=== PATIENT | female | born 1940 | race Caucasian/White ===

== ENCOUNTER 2022-04-21 13:53 | Inpatient (IN) | payer MEDICARE ==
[~2022-04-21] VITALS: Ht 165.1 cm; Wt 64.4 kg
[2022-04-21 13:53] VITALS: BP_SYST 128
[2022-04-21] MEDS ORDERED: ASPIRIN 81 MG TAB.CHEW PO ONE (14:30)
--- NOTE | 2022-04-21 14:41 | NUR ---
PATIENT BIBA FROM HOME C/O DIARHEA ALL NIGHT, ON ARRIVAL PATIENT AAOX4 SPEECH CLEAR AND COHERENT, MOVE ALL EXTREMITIES, DENIES ABDOMINAL PAIN, AWAITING FOR EDP FOR INITIAL ASSESSMENT.
[2022-04-21 14:54] LABS: BASOPHILS # (AUTO) 0.1 K/uL (0.0-0.2); BASOPHILS % (AUTO) 0.4 % (0.0-2.0); EOSINOPHILS # (AUTO) 0.9 K/uL (0.0-0.4); EOSINOPHILS % (AUTO) 6.7 % (0.0-4.0); HEMATOCRIT 43.3 % (36-48); HEMOGLOBIN 14.6 g/dL (12.0-16.0); LYMPHOCYTES # (AUTO) 1.8 K/uL (1.0-5.5); LYMPHOCYTES % (AUTO) 12.8 % (20.5-51.5); MEAN CORPUSCULAR HEMOGLOBIN 32 pg (27-31); MEAN CORPUSCULAR HGB CONC 34 % (32-36); MEAN CORPUSCULAR VOLUME 94 fL (79.0-98.0); MONOCYTES # (AUTO) 0.7 K/uL (0.0-1.0); MONOCYTES % (AUTO) 5.2 % (1.7-9.3); NEUTROPHILS # (AUTO) 10.6 K/uL (1.8-7.7); NEUTROPHILS % (AUTO) 74.9 % (40.0-70.0); PLATELET COUNT (AUTO) 262 K/uL (130-430); RED BLOOD CELL COUNT(AUTO) 4.61 MIL/uL (4.2-6.2); RED CELL DISTRIBUTION WIDTH 13.2 % (9.0-15.0); WHITE BLOOD COUNT (AUTO) 14.1 K/uL (4.8-10.8)
[2022-04-21 15:14] LABS: ANION GAP 9 (5-15); CALCIUM 9.8 mg/dL (8.4-11.0); CHLORIDE 106 mmol/L (98-107); CREATININE 0.99 mg/dL (0.55-1.30); GLUCOSE 107 mg/dL (70-99); UREA NITROGEN, BLOOD 25 mg/dL (8-21)
[2022-04-21 15:23] LABS: ALANINE AMINOTRANSFERASE 86 U/L (12-78); ALBUMIN 3.5 g/dL (3.4-4.8); ASPARTATE AMINOTRANSFERASE 220 U/L (10-37); TOTAL BILIRUBIN 0.7 mg/dL (0.0-1.0)
--- NOTE | 2022-04-21 15:24 | NUR ---
COVID AND FLU SWABBED AND SENT TO LAB
--- NOTE | 2022-04-21 16:00 | NUR ---
EDP SEEN PATIENT WITH ORDER PORSHA OUT.
--- NOTE | 2022-04-21 16:47 | NUR ---
PATIENT ASSISTED TO THE BATHROOM.
[2022-04-21] MEDS ORDERED: VITD2000 PO (17:05)
[2022-04-21] MEDS ORDERED: SIMV40TA2 PO (17:05)
[2022-04-21] MEDS ORDERED: MULT-1117 PO (17:05)
[2022-04-21] MEDS ORDERED: OXYB10TA4 PO (17:05)
[2022-04-21] MEDS ORDERED: [UNRECOGNIZED DRUG - OTHER] (17:05)
[2022-04-21] MEDS ORDERED: CALCIUM (17:05)
--- NOTE | 2022-04-21 17:14 | NUR ---
PATIENT REMAINS IN BED, FAMILY MEMBER AT BEDSIDE, AWAITING FOR DISPOSITION.
--- NOTE | 2022-04-21 17:51 | NUR ---
Admit bed requested Patient will be admitted to care of . Admitted to [facility] unit. Diagnosis ACUTE PANCREATITIS Inpatient (Yes or No) Y Observation (Yes or No) N Orientation concerns or request close to nursing station (Yes or No) N Covid Status NEG On vent or bipap N Isolation requirements N Needs a sitter N From Home (Yes or if No enter name of facility) Y Requires Dialysis (Yes or No) N Med Rec Completed (Yes of No) Y
--- NOTE | 2022-04-21 17:52 | NUR ---
Medication reconciliation completed with information provided by PT PER PRIMARY RN MICHELINE. Any prior medication reconciliation on file was reviewed and corrected.
--- NOTE | 2022-04-21 17:54 | NUR ---
PATIENT ADMITTED TO M/S FOR PANCREATITIS, AWAITING FOR BED ASSIGNMENT.
[2022-04-21 17:55] LABS: LIPASE 5721 U/L (73-393)
[2022-04-21] MEDS: D5NS 1,000 ML IV SCH (18:29)
--- NOTE | 2022-04-21 19:30 | NUR ---
Patient resting quietly. No acute distress noted. Vital signs within normal range. Son at bedside
[2022-04-21] MEDS ORDERED: MAGNESIUM SULFATE 50 ML IV PRN (19:45)
[2022-04-21] MEDS ORDERED: NALOXONE HCL 0.4 MG/ML AMP (NARCAN) IVP PRN ×2 (19:45)
[2022-04-21] MEDS ORDERED: MORPHINE 2 MG/ML INJ. SYRINGE IVP PRN ×2 (19:45)
[2022-04-21] MEDS ORDERED: POTASSIUM CHLORIDE 20 MEQ TAB.PRT.SR PO PRN (19:45)
[2022-04-21] MEDS ORDERED: ACETAMINOPHEN 325 MG TABLET PO PRN (19:45)
[2022-04-21] MEDS ORDERED: MUPIROCIN 2% TOPICAL OINTMENT 22 GM NS PRN (19:45)
[2022-04-21] MEDS ORDERED: LORazepam 2 MG/ML VIAL IVP PRN (19:45)
[2022-04-21] MEDS ORDERED: DOCUSATE SODIUM 100 MG CAPSULE PO PRN (19:45)
[2022-04-21] MEDS ORDERED: ZOLPIDEM TARTRATE 5 MG TABLET PO PRN (19:45)
[2022-04-21] MEDS ORDERED: ONDANSETRON HCL 4 MG/2 ML VIAL IVP PRN (19:45)
[2022-04-21] MEDS ORDERED: OXYBUTYNIN CHLORIDE 5 MG TABLET PO SCH (21:00)
[2022-04-21] MEDS ORDERED: HEPARIN SODIUM,PORCINE 5,000 UNITS/ML VIAL SUBCUT SCH (21:00)
--- NOTE | 2022-04-21 21:00 | NUR ---
ADMITTING MEDICATION DITROPAN NOT AVAILABLE IN THE ER.
--- NOTE | 2022-04-21 21:00 | NUR ---
Escorted patient to and from restroom. Patient tolerated walking well.
--- NOTE | 2022-04-21 21:30 | NUR ---
Patient resting quietly. No acute distress noted. Vital signs within normal range.
--- NOTE | 2022-04-21 21:51 | NUR ---
Chi Mendiola [phone]
--- NOTE | 2022-04-21 22:16 | NUR ---
NOTIFIED HOUSE SUP TO BRING DITROPAN TO ER.
--- NOTE | 2022-04-21 22:30 | NUR ---
Escorted patient to and from restroom. Patient tolerated walking well.
--- NOTE | 2022-04-22 02:09 | NUR ---
PT RESING IN BED WITH EYES CLOSED, VSS, NO ACUTE DISTRESS NOTED.
--- NOTE | 2022-04-22 03:47 | NUR ---
Escorted patient to and from restroom. Patient tolerated walking well.
--- NOTE | 2022-04-22 04:50 | NUR ---
Patient resting quietly. No acute distress noted. Vital signs within normal range.
[2022-04-22 06:21] LABS: BASOPHILS % (AUTO) 0.2 % (0.0-2.0); EOSINOPHILS # (AUTO) 0.8 K/uL (0.0-0.4); HEMATOCRIT 41.6 % (36-48); HEMOGLOBIN 13.9 g/dL (12.0-16.0); LYMPHOCYTES # (AUTO) 2.1 K/uL (1.0-5.5); LYMPHOCYTES % (AUTO) 25.7 % (20.5-51.5); MEAN CORPUSCULAR HEMOGLOBIN 31 pg (27-31); MEAN CORPUSCULAR HGB CONC 34 % (32-36); MEAN CORPUSCULAR VOLUME 94 fL (79.0-98.0); MONOCYTES # (AUTO) 0.5 K/uL (0.0-1.0); MONOCYTES % (AUTO) 6.2 % (1.7-9.3); NEUTROPHILS # (AUTO) 4.7 K/uL (1.8-7.7); NEUTROPHILS % (AUTO) 57.9 % (40.0-70.0); PLATELET COUNT (AUTO) 253 K/uL (130-430); RED BLOOD CELL COUNT(AUTO) 4.43 MIL/uL (4.2-6.2); RED CELL DISTRIBUTION WIDTH 13.1 % (9.0-15.0); WHITE BLOOD COUNT (AUTO) 8.2 K/uL (4.8-10.8)
[2022-04-22 06:30] LABS: ANION GAP 7 (5-15); CALCIUM 9.2 mg/dL (8.4-11.0); CHLORIDE 109 mmol/L (98-107); CREATININE 0.93 mg/dL (0.55-1.30); GLUCOSE 81 mg/dL (70-99); LIPASE 495 U/L (73-393); UREA NITROGEN, BLOOD 18 mg/dL (8-21)
--- NOTE | 2022-04-22 07:25 | NUR ---
ASSUMED PATIENT CARE, AAOX4 SPEECH CLEAR AND COHERENT, VERBALIZES FEELING GOING HOME, DENIES PAIN, WILL CONTINUE TO MONITOR.
[2022-04-22] MEDS: D5NS 1,000 ML IV SCH (07:49)
[2022-04-22 07:59] LABS: CHOLESTEROL 108 mg/dL (<200); HDL CHOLESTEROL 53 mg/dL (>55); LDL CHOLESTEROL 51 mg/dL (<100); TRIGLYCERIDES 41 mg/dL (30-150)
--- NOTE | 2022-04-22 07:59 | NUR ---
DR PAGE AT BEDSIDE.
--- NOTE | 2022-04-22 08:45 | NUR ---
ALL RESULT BACK ADMITTING PHYSICIAN D/C PATIENT WILL CALL FAMILY FOR BUILDING AND CONSTRUCTION MANAGER.
--- NOTE | 2022-04-22 08:51 | NUR ---
CALLED CHOLO, PT SISTER AT [phone] TO TODDLER TEACHER PATIENT
[2022-04-22] MEDS ORDERED: OXYBUTYNIN CHLORIDE 5 MG XL TAB PO SCH (09:00)
--- NOTE | 2022-04-22 10:59 | NUR ---
Patient given written and verbal discharge instructions and verbalizes understanding. ER MD discussed with patient the results and treatment provided. Patient in stable condition. ID arm band removed. IV catheter removed intact and dressing applied, no active bleeding. Rx of none given. Patient educated on pain management and to follow up with PMD. Pain Scale 0. Opportunity for questions provided and answered. Medication side effect fact sheet provided.
--- NOTE | 2022-04-22 10:59 | NUR ---
sister here to belt picker patient.
[2022-04-22 11:00] VITALS: BP_SYST 148
== END 2022-04-22 15:00 | disposition home or self-care (01) | DRG 439 ==
LOC: SED 13:53 → SMU 17:48
PROVIDERS: ADMIT General Practice; ATTEND General Practice
DX: K85.90 Acute pancreatitis without necrosis or infection, unspecified (principal); E87.1 Hypo-osmolality and hyponatremia; G35 Multiple sclerosis; R74.01 Elevation of levels of liver transaminase levels; D72.829 Elevated white blood cell count, unspecified; Z20.822 Contact with and (suspected) exposure to COVID-19; I10 Essential (primary) hypertension; Z90.49 Acquired absence of other specified parts of digestive tract; Z88.8 Allergy status to other drugs, medicaments and biological substances; Z79.899 Other long term (current) drug therapy
CPT/HCPCS: 36415; 71045; 80048; 80053; 80061; 83036; 83690; 83735; 83880; 84484; 85025; 93005; 99285; J1644